=== PATIENT | male | born 1945 | race Caucasian/White ===

== ENCOUNTER 2017-02-20 08:16 | Outpatient (CLI) ==
[2016-04-13 17:39] VITALS: BMI 23.6
--- NOTE | 2017-02-20 09:04 | US ---
EXAM: Ultrasound abdomen limited. HISTORY: Epigastric pain. COMPARISON: CT 08/03/2015. TECHNIQUE: Abdominal, real time with image documentation: limited (eg, single organ, quadrant, fol low-up) FINDINGS: The liver demonstrates homogeneous echotexture without intrahepatic biliary dilatation. Portal venous flow is normal in direction. The gallbladder is without shadowing stones, wall thicke oral or pericholecystic fluid. Common duct measures approximately 0.4 cm. Visualized portions of t he pancreas are unremarkable. IMPRESSION: No sonographic abnormality of the liver, gallbladder or biliary system.
== END 2017-02-20 08:17 | disposition home or self-care (01) ==
LOC: RAD 08:16
PROVIDERS: ATTEND Family Medicine
DX: R10.13 Epigastric pain (principal)

== ENCOUNTER 2017-04-07 07:07 | Outpatient (CLI) ==
[2016-04-13 17:39] VITALS: BMI 23.6
--- NOTE | 2017-04-07 09:03 | US ---
Exam: Limited ultrasonographic evaluation of the abdomen with mcdonald-scale and color Doppler imaging. Comparison: 02/20/2017. Reason for exam: Splenomegaly. FINDINGS: The spleen measures approximately 11.48 x 4.61 x 5.05 cm without parenchymal mass lesion or abnormal vascularity. The left kidney measures approximately 11.53 x 5.16 x 4.26 cm. In the midportion of the left kidney . There is a 3.22 x 2.75 x 2.86 anechoic cyst without interval vascularity. Impression: 1. Left renal cyst. 2. No parenchymal splenic lesion is seen on ultrasound evaluation
== END 2017-04-07 07:08 | disposition home or self-care (01) ==
LOC: RAD 07:07
PROVIDERS: ATTEND Internal Medicine Hematology & Oncology
DX: D47.3 Essential (hemorrhagic) thrombocythemia (principal)

== ENCOUNTER 2017-06-02 16:01 | Inpatient (IN) ==
[2017-06-02] MEDS ORDERED: TYLENOL PO STA (16:10)
[2017-06-02 16:50] LABS: BASOPHILS # (AUTO) 0.1 K/uL (0-0.2); BASOPHILS % (AUTO) 0.9 % (0.0-3.0); EOSINOPHILS # (AUTO) 0.1 K/ul (0.0-0.7); EOSINOPHILS % (AUTO) 0.6 % (0.0-7.0); HEMOGLOBIN 11.2 g/dl (14.0-18.0); IMMATURE GRANULOCYTE % (AUTO) 1.6 % (0.0-5.0); LYMPHOCYTES % (AUTO) 7.6 (10.0-50.0); MEAN CORPUSCULAR HEMOGLOBIN 32.7 pg (27.0-31.0); MEAN CORPUSCULAR HGB CONC 33.9 (31.8-35.4); MEAN CORPUSCULAR VOLUME 96.5 fl (80.0-94.0); MONOCYTES # (AUTO) 0.2 K/uL (0.4-2.0); MONOCYTES % (AUTO) 1.7 (0-10); NEUTROPHILS # (AUTO) 11.3 K/ul (2.0-6.9); NEUTROPHILS % (AUTO) 87.6; RED BLOOD COUNT 3.42 10^6/ul (4.70-6.10); WHITE BLOOD COUNT 12.84 K/ul (4.2-10.2)
[2017-06-02 16:53] LABS: PLATELET COUNT 1293 10^3/uL (140-440)
[2017-06-02 17:11] LABS: FLU INTERNAL QC INTERNAL QC VALID; RAPID FLU A NEGATIVE (NEGATIVE); RAPID FLU B NEGATIVE (NEGATIVE)
[2017-06-02 17:11] LABS: ALBUMIN 3.4 g/dL (3.4-5.0); ALBUMIN/GLOBULIN RATIO 0.89; BILIRUBIN,TOTAL 0.74 mg/dL (0.00-1.20); BUN/CREATININE RATIO 16.47; CALCIUM 9.3 mg/dL (8.2-10.2); CREATININE 0.85 mg/dL (0.60-1.10); TOTAL PROTEIN 7.2 g/dL (5.8-8.1)
--- NOTE | 2017-06-02 17:13 | CT ---
EXAM: CT of the chest without contrast. HISTORY: Fever. Left-sided chest pain. PROCEDURE: Contiguous axial CT images of the chest without contrast with coronal and sagittal refor mats. FINDINGS: The heart is within normal limits in size. The thoracic aorta is within normal limits in diameter. The mediastinum is normal in appearance. There is a small layering left pleural effusion w ith adjacent consolidation. There are infiltrates and consolidation in the left upper lobe consisten t with pneumonia. There are calcified granulomas in the right lung. There is minimal right basilar d ependent atelectasis. There are degenerative changes in the spine. The adrenal glands and visualize d portion of the liver are normal in appearance. Impression: Left upper lobe infiltrates and consolidation consistent with pneumonia. Small left pleural effusion with adjacent atelectasis and/or pneumonia. Minimal right basilar dependent atelectasis.
[2017-06-02] MEDS ORDERED: SODIUM CHLORIDE 1,000 ML IV STA (17:21)
[2017-06-02] MEDS ORDERED: ROCEPHIN 1 GM in SODIUM CHLORIDE 50 ML IV STA (17:21)
[2017-06-02 17:22] LABS: ERYTHROCYTE SEDIMENTATION RATE 38 mm/hr (0-15); ESR INTERNAL QC INTERNAL QC VALID
--- NOTE | 2017-06-02 17:24 | ED.PDOC ---
General ED Provider: Dr. IAN LANDRUM-ER Chief Complaint: Fever Stated Complaint: hes had fever and left chest pain Time Seen by Physician: 16:05 Mode of Arrival: Walk-In Information Source: Patient, Family Exam Limitations: No limitations Primary Care Provider: IAN LANDRUM Nursing and Triage Documentation Reviewed and Agree: Yes Miscellaneous Complaint Exam - Febrile Illness/Adult Complaint/Exam Onset/Duration: 24hrs Symptoms Are: Still present Timing: Intermittent Episodes Lasting: Hours Highest Temperature Recorded: 103 Initial Severity: Mild Current Severity: Moderate Aggravating: Reports: Unknown Alleviating: Reports: None Associated Signs and Symptoms: Reports: Headache, Chills, Myalgia. Denies: Fluid intake, Short of air, Cough, Sore throat, Nausea, Vomiting, Diaphoresis, Dysuria, Arthralgia, Stiff neck, Rash, Altered mental status Related History: Reports: Similar episode. Denies: Recent tick bite, Recent tick exposure Pseudomonas Risk Factors: Reports: None Serious Bacterial Infection Risk Factors: Reports: None Current Antibiotic Use: No Specific Findings: Absent: Meningeal signs, Diaphoresis, Joint swelling, Erythema, Cellulitis, Lymphadenopathy, Petechiae, CVA tenderness Differential Diagnoses: Fever of Unknown Origin, Pyelonephritis Patient Advised to Stop Smoking: No Review of Systems - Review Of Systems Constitutional: Reports: Chills, Fever Eyes: Reports: No symptoms Ears, Nose, Mouth, Throat: Reports: No symptoms Respiratory: Reports: Cough Cardiac: Reports: Chest pain GI: Reports: No symptoms : Reports: No symptoms Musculoskeletal: Reports: No symptoms Skin: Reports: No symptoms Neurological: Reports: No symptoms Endocrine: Reports: No symptoms Hematologic/Lymphatic: Reports: No symptoms All Other Systems: Reviewed and Negative Past Medical History - Past Medical History Previously Healthy: Yes Endocrine: Reports: Unknown Cardiovascular: Reports: Unknown Respiratory: Reports: Unknown Hematological: Reports: Unknown, Other (thrombocytosis) Gastrointestinal: Reports: Unknown Genitourinary: Reports: Unknown Neuro/Psych: Reports: Unknown Musculoskeletal: Reports: Unknown Cancer: Reports: Unknown - Surgical History General Surgical History: Reports: Unknown - Family History Family History: Reports: Unknown - Social History Smoking Status: Former smoker Hx Substance Use: No Alcohol Screening: Occasionally Lives: With family Physical Exam - Physical Exam Appearance: Well-appearing, No pain distress, Well-nourished Pain Distress: Mild Eyes: SANJEEV, EOMI, Conjunctiva clear ENT: Ears normal, Nose normal, Oropharynx normal Neck: Supple Respiratory: Crackles, Rhonchi Cardiovascular: RRR, Pulses normal, No rub, No murmur GI/: Soft, Nontender, No masses, Bowel sounds normal, No Organomegaly Musculoskeletal: Normal strength Skin: Warm Neurological: Sensation intact Psychiatric: Affect appropriate, Mood appropriate Interpretation - Radiology Interpretation Radiology Interpretation By: Radiologist Radiology Results: Positive Exam Interpreted: CT Scan Critical Care Note - Critical Care Note Total Time (mins): 0 Course - Course Hematology/Chemistry: 06/02/17 16:09 06/02/17 14:53 Orders, Labs, Meds: Lab Review 06/02/17 06/02/17 06/02/17 14:53 16:09 16:15 WBC 12.84 H RBC 3.42 L Hgb 11.2 L Hct 33.0 L MCV 96.5 H MCH 32.7 H MCHC 33.9 RDW Coeff of Jeff 18.7 H Plt Count 1293 H* Immature Gran % (Auto) 1.6 Neut % (Auto) 87.6 Lymph % (Auto) 7.6 L [place] % (Auto) 1.7 Eos % (Auto) 0.6 Baso % (Auto) 0.9 Immature Gran # (Auto) 0.2 Neut # 11.3 H Lymph # 1.0 Burnet # 0.2 L Eos # 0.1 Baso # 0.1 ESR 38 H Sodium 138 Potassium 4.0 Chloride 101 Carbon Dioxide 25 Anion Gap 16.0 BUN 14 Creatinine 0.85 Estimated GFR (MDRD) 89.00 BUN/Creatinine Ratio 16.47 Glucose 126 H Calcium 9.3 Total Bilirubin 0.74 AST 25 ALT 21 Alkaline Phosphatase 54 L Total Protein 7.2 Albumin 3.4 Globulin 3.8 Albumin/Globulin Ratio 0.89 Influenza A (Rapid) Negative Influenza B (Rapid) Negative Orders Category Date Time Status ED IV/MEDIPORT/POWERPORT .ONCE EMERGENCY 06/02/17 17:21 Active BLOOD CULTURE Stat LAB 06/02/17 14:53 Received CBC W/ AUTO DIFF Stat LAB 06/02/17 16:09 Completed COMPREHENSIVE METABOLIC PANEL Stat LAB 06/02/17 14:53 Completed EHRLICHIA DNA, PCR Stat LAB 06/02/17 14:53 Received ESR Stat LAB 06/02/17 16:09 Completed MOLECULAR GROUP A STREP Stat LAB 06/02/17 16:15 Results RAPID FLU A/B Stat LAB 06/02/17 16:15 Completed LAUREN MTN SPOTTED FEVER,IgG Stat LAB 06/02/17 14:53 Received LAUREN MTN SPOTTED FEVER,IgM Stat LAB 06/02/17 14:53 Received STREP SCREEN Stat LAB 06/02/17 16:15 Results URINALYSIS C & S IF INDICATED Stat LAB 06/02/17 16:09 Uncollected 0.9 % Sodium Chloride [Saline Flush] MEDS 06/02/17 17:21 Ordered 1 syr IVF PRN PRN Acetaminophen [Tylenol] MEDS 06/02/17 16:10 Discontinued 650 mg PO ONCE STA Ceftriaxone Sodium [Rocephin] 1 gm MEDS 06/02/17 17:21 Active 0.9 % Sodium Chloride [Sodium Chloride] 50 ml IV ONCE Sodium Chloride 0.9% [Sodium Chloride] 1,000 ml MEDS 06/02/17 17:21 Active IV 100 mls/hr CT ABDOMEN/PELVIS WO CONTRAST Stat RADS 06/02/17 16:[address] CHEST W/O CONTRAST Stat RADS 06/02/17 16:10 Completed Medications Generic Name Dose Route Start Last Admin Trade Name Freq PRN Reason Stop Dose Admin Ceftriaxone Sodium 1 gm/ 50 mls @ 75 mls/hr 06/02/17 17:21 Sodium Chloride IV 06/02/17 18:00 ONCE STA Sodium Chloride 1,000 mls @ 100 mls/hr 06/02/17 17:21 Sodium Chloride IV 06/03/17 03:20 .Q10H STA Sodium Chloride 1 syr 06/02/17 17:21 Saline Flush IVF PRN PRN To flush IV Discontinued Medications Generic Name Dose Route Start Last Admin Trade Name Freq PRN Reason Stop Dose Admin Acetaminophen 650 mg 06/02/17 16:10 06/02/17 16:35 Tylenol PO 06/02/17 16:11 650 mg ONCE STA Administration Vital Signs: Temp Pulse Resp BP Pulse Ox 06/02/17 16:02 103.6 F H 99 H 20 134/71 95 Departure - Departure Time of Disposition: 17:25 Disposition: ADMITTED INPATIENT Discharge Problem: Pneumonia Instructions: Community Acquired Pneumonia (ED) Condition: Good Pt referred to PMD for follow-up: Yes Allergies/Adverse Reactions: Allergies No Known Allergies Allergy (Verified 06/02/17 16:11) Home Medications: Ambulatory Orders Aspirin [Aspirin EC] 81 mg PO DAILYWM 04/13/16 Garlic 1 each PO DAILY 04/13/16 [place]-3 Fatty Acids [Fish Oil] 500 mg PO BID 04/13/16 Red Yeast Rice 600 mg PO DAILY 04/13/16 [place] Jelly 500 mg PO DAILY 07/08/16 Hydroxyurea [Droxia] 200 mg PO DAILY 06/02/17 Disposition Discussed With: Patient, Family
--- NOTE | 2017-06-02 17:27 | CT ---
EXAM: CT abdomen pelvis without contrast HISTORY: Fever COMPARISON: 08/03/2015 TECHNIQUE: CT abdomen pelvis performed without intravenous contrast. Coronal and sagittal reformat franko images obtained. FINDINGS: Please see separate report CT chest noting small left pleural effusion and left-sided inf iltrate. No free air. No acute abnormalities of the bones. Degenerative change in the spine. Rod ateral pars defects L5 with 1 cm anterolisthesis of L5 on S1. Evaluation organ parenchyma limited w ithout contrast. Liver appears normal. Gallbladder unremarkable. Pancreas unremarkable. Spleen m ildly enlarged. Adrenals unremarkable. There is a left renal cyst measuring 3 cm. There are sever al bilateral nonobstructing renal calculi measuring up to 3 mm. No hydronephrosis. No calculi visu alized in normal course of the ureters. Bladder only mildly distended and poorly evaluated, grossly unremarkable. Prostate normal in size. Small fat-containing right inguinal hernia. Aorta normal in caliber. Mild atherosclerosis. No lymphadenopathy or ascites. Small fat-containing umbilical h ernia. Stomach appears normal. No dilated loops small bowel. Mild fecal retention in the colon. Appendix not visualized. No inflammatory stranding identified in the abdomen pelvis. IMPRESSION: 1. No acute inflammatory process identified in the abdomen pelvis. 2. Bilateral nephrolithiasis. No hydronephrosis. 3. Mild splenomegaly. 4. Mild fecal retention. 5. Please see separate report CT chest noting small pleural effusion and left-sided pneumonia. 6. Bilateral pars defects L5 with 1 cm anterolisthesis of L5 on S1.
[2017-06-02] MEDS ORDERED: MOTRIN SUSP PO PRN (17:30)
[2017-06-02] MEDS ORDERED: ROCEPHIN ONE (17:36)
[2017-06-02 18:13] VITALS: BMI 22.1
[2017-06-02] MEDS: ZITHROMAX PO SCH (18:18)
[2017-06-02] MEDS: SODIUM CHLORIDE 1,000 ML IV SCH (18:19)
[2017-06-02] MEDS ORDERED: DUONEB NEB ONE (18:58)
[2017-06-02] MEDS: XOPENEX 0.63 MG NEB SCH ×2 (19:00→23:25)
[2017-06-02] MEDS ORDERED: OMEGA-3 FISH OIL ONE (20:44)
[2017-06-02] MEDS ORDERED: OMEGA PO SCH ×21 (21:00)
[2017-06-02] MEDS ORDERED: FATTY ACIDS PO SCH ×21 (21:00)
[2017-06-02 22:00] LABS: ADD URINE MICROSCOPIC YES; BILIRUBIN,URINE Negative (NEGATIVE); KETONES,URINE Negative (NEGATIVE); LEUKOCYTE ESTERASE ,URINE Negative (NEGATIVE); NITRITE,URINE Negative (NEGATIVE); PH,URINE 5.5 (5-9); PROTEIN,URINE 1+ (NEGATIVE); URINE, BLOOD Negative (NEGATIVE)
[2017-06-02 22:19] LABS: GRANULAR CASTS,URINE 0-2 (NOT PRESENT)
[2017-06-03] MEDS: XOPENEX 0.63 MG NEB SCH ×4 (05:04→22:33)
[2017-06-03] MEDS: TYLENOL PO PRN ×2 (05:09→13:23)
[2017-06-03 05:28] LABS: BASOPHILS # (AUTO) 0.1 K/uL (0-0.2); BASOPHILS % (AUTO) 0.8 % (0.0-3.0); EOSINOPHILS # (AUTO) 0.1 K/ul (0.0-0.7); EOSINOPHILS % (AUTO) 0.4 % (0.0-7.0); HEMATOCRIT 27.4 % (42.0-52.0); HEMOGLOBIN 9.4 g/dl (14.0-18.0); IMMATURE GRANULOCYTE % (AUTO) 1.8 % (0.0-5.0); LYMPHOCYTES # (AUTO) 0.9 K/uL (0.60-3.4); LYMPHOCYTES % (AUTO) 8.2 (10.0-50.0); MEAN CORPUSCULAR HEMOGLOBIN 33.1 pg (27.0-31.0); MEAN CORPUSCULAR HGB CONC 34.3 (31.8-35.4); MEAN CORPUSCULAR VOLUME 96.5 fl (80.0-94.0); MONOCYTES # (AUTO) 0.2 K/uL (0.4-2.0); MONOCYTES % (AUTO) 1.7 (0-10); NEUTROPHILS # (AUTO) 9.8 K/ul (2.0-6.9); NEUTROPHILS % (AUTO) 87.1; RED BLOOD COUNT 2.84 10^6/ul (4.70-6.10); WHITE BLOOD COUNT 11.29 K/ul (4.2-10.2)
[2017-06-03 05:29] LABS: PLATELET COUNT 1044 10^3/uL (140-440)
[2017-06-03 05:48] LABS: ALBUMIN 2.7 g/dL (3.4-5.0); ALBUMIN/GLOBULIN RATIO 0.82; ANION GAP 9.4; BILIRUBIN,TOTAL 0.56 mg/dL (0.00-1.20); BUN/CREATININE RATIO 17.8; CALCIUM 8.4 mg/dL (8.2-10.2); CREATININE 0.73 mg/dL (0.60-1.10); POTASSIUM 4.4 mmol/L (3.5-5.1)
[2017-06-03] MEDS: SODIUM CHLORIDE 1,000 ML IV SCH ×3 (05:56→23:02)
[2017-06-03] MEDS: OMEGA-3 FISH OIL PO SCH ×2 (08:22→20:55)
[2017-06-03] MEDS: ASPIRIN EC PO SCH (08:22)
[2017-06-03] MEDS: ZITHROMAX PO SCH (08:22)
[2017-06-03] MEDS: ROCEPHIN 1 GM in SODIUM CHLORIDE 50 ML IV SCH (08:23)
[2017-06-03] MEDS: LOVENOX SUBCUT SCH (08:23)
[2017-06-03] MEDS: HYDROXYUREA 200 MG PO SCH (08:23)
[2017-06-04] MEDS: TYLENOL PO PRN ×4 (00:44→20:21)
[2017-06-04 04:47] LABS: BASOPHILS # (AUTO) 0.1 K/uL (0-0.2); BASOPHILS % (AUTO) 0.8 % (0.0-3.0); EOSINOPHILS # (AUTO) 0.1 K/ul (0.0-0.7); EOSINOPHILS % (AUTO) 0.8 % (0.0-7.0); HEMATOCRIT 26.2 % (42.0-52.0); HEMOGLOBIN 8.9 g/dl (14.0-18.0); IMMATURE GRANULOCYTE % (AUTO) 1.8 % (0.0-5.0); LYMPHOCYTES % (AUTO) 10.1 (10.0-50.0); MONOCYTES # (AUTO) 0.2 K/uL (0.4-2.0); MONOCYTES % (AUTO) 1.5 (0-10); NEUTROPHILS # (AUTO) 8.4 K/ul (2.0-6.9); WHITE BLOOD COUNT 9.84 K/ul (4.2-10.2)
[2017-06-04 04:50] LABS: PLATELET COUNT 1030 10^3/uL (140-440)
[2017-06-04 05:06] LABS: ALBUMIN 2.6 g/dL (3.4-5.0); ALBUMIN/GLOBULIN RATIO 0.79; ANION GAP 9.5; BILIRUBIN,TOTAL 0.42 mg/dL (0.00-1.20); BUN/CREATININE RATIO 14.92; CALCIUM 8.5 mg/dL (8.2-10.2); CREATININE 0.67 mg/dL (0.60-1.10); POTASSIUM 4.5 mmol/L (3.5-5.1); TOTAL PROTEIN 5.9 g/dL (5.8-8.1)
[2017-06-04] MEDS: XOPENEX 0.63 MG NEB SCH ×4 (05:35→22:43)
[2017-06-04] MEDS: ASPIRIN EC PO SCH (08:49)
[2017-06-04] MEDS: OMEGA-3 FISH OIL PO SCH ×2 (08:49→20:16)
[2017-06-04] MEDS: ZITHROMAX PO SCH (08:49)
[2017-06-04] MEDS: LOVENOX SUBCUT SCH (08:49)
[2017-06-04] MEDS: ROCEPHIN 1 GM in SODIUM CHLORIDE 50 ML IV SCH (08:49)
[2017-06-04] MEDS: HYDROXYUREA 200 MG PO SCH (08:54)
[2017-06-04] MEDS: SODIUM CHLORIDE 1,000 ML IV SCH (13:20)
--- NOTE | 2017-06-04 14:13 | DI ---
EXAM: Two views of the chest. History: Follow-up pneumonia Comparison: Chest CT 06/02/2017 Findings: Heart size is normal. Persistent but improving left upper lobe consolidation. Left lowe r lobe consolidation is increasing and there is a small left pleural effusion. Right lung is grossl y clear. No pneumothorax. The visualized osseous structures unchanged. Impression: Persistent but improving left upper lobe consolidation. Left lower lobe consolidation is increasing. There is a small left pleural effusion. Continued follow-up recommended.
[2017-06-04] MEDS: HYDREA PO SCH (14:17)
[2017-06-04] MEDS ORDERED: HYDROXYUREA 500 MG PO SCH (14:30)
[2017-06-05] MEDS: TYLENOL PO PRN ×2 (04:15→11:57)
[2017-06-05 05:01] LABS: BASOPHILS # (AUTO) 0.1 K/uL (0-0.2); EOSINOPHILS # (AUTO) 0.1 K/ul (0.0-0.7); EOSINOPHILS % (AUTO) 1.1 % (0.0-7.0); HEMATOCRIT 28.8 % (42.0-52.0); HEMOGLOBIN 9.8 g/dl (14.0-18.0); IMMATURE GRANULOCYTE % (AUTO) 1.2 % (0.0-5.0); LYMPHOCYTES # (AUTO) 0.9 K/uL (0.60-3.4); LYMPHOCYTES % (AUTO) 10.6 (10.0-50.0); MEAN CORPUSCULAR HEMOGLOBIN 33.1 pg (27.0-31.0); MEAN CORPUSCULAR VOLUME 97.3 fl (80.0-94.0); MONOCYTES # (AUTO) 0.1 K/uL (0.4-2.0); MONOCYTES % (AUTO) 1.4 (0-10); NEUTROPHILS # (AUTO) 7.1 K/ul (2.0-6.9); NEUTROPHILS % (AUTO) 84.7; RED BLOOD COUNT 2.96 10^6/ul (4.70-6.10); WHITE BLOOD COUNT 8.38 K/ul (4.2-10.2)
[2017-06-05 05:05] LABS: PLATELET COUNT 1297 10^3/uL (140-440)
[2017-06-05] MEDS: XOPENEX 0.63 MG NEB SCH ×2 (05:10→11:10)
[2017-06-05 05:19] LABS: ALBUMIN 2.7 g/dL (3.4-5.0); ALBUMIN/GLOBULIN RATIO 0.77; ANION GAP 15.2; BILIRUBIN,TOTAL 0.44 mg/dL (0.00-1.20); BUN/CREATININE RATIO 13.43; CALCIUM 8.9 mg/dL (8.2-10.2); CREATININE 0.67 mg/dL (0.60-1.10); POTASSIUM 4.2 mmol/L (3.5-5.1); TOTAL PROTEIN 6.2 g/dL (5.8-8.1)
[2017-06-05] MEDS: SODIUM CHLORIDE 1,000 ML IV SCH ×2 (07:06→19:18)
[2017-06-05] MEDS: LOVENOX SUBCUT SCH (09:22)
[2017-06-05] MEDS: ROCEPHIN 1 GM in SODIUM CHLORIDE 50 ML IV SCH (09:23)
[2017-06-05] MEDS: OMEGA-3 FISH OIL PO SCH ×2 (09:23→20:29)
[2017-06-05] MEDS: ASPIRIN EC PO SCH (09:23)
[2017-06-05] MEDS: HYDREA PO SCH (09:23)
[2017-06-05] MEDS: ZITHROMAX PO SCH (09:23)
[2017-06-05 18:16] VITALS: BP 123/74; TEMP 97.7
[2017-06-05] MEDS ORDERED: NORCO 5-325 PO STA (19:59)
[2017-06-05] MEDS ORDERED: NORCO 5-325 ONE (20:01)
--- NOTE | 2017-06-05 20:32 | CT ---
EXAM: CT head without contrast HISTORY: Headache COMPARISON: None. TECHNIQUE: Helical axial CT of the head was performed without contrast. Coronal and sagittal reconst ructions were performed. FINDINGS: There is no acute intracranial abnormality. There is no hemorrhage, mass, midline shift, abnormal e xtra-axial fluid collection, hydrocephalus or evolving ischemia. The mcdonald-white matter junction is w ell maintained. There is some mild atrophy and some modest chronic small vessel ischemia in the whit e matter of both cerebral hemispheres most notably in the left parietal area. Brain parenchyma, vent ricles and sulci are otherwise normal. There are no acute calvarial lesions. Visualized orbits and globes are unremarkable. The mastoid a ir cells demonstrate no significant soft tissue opacification. The visualized paranasal sinuses show no air-fluid levels. There appears to have been prior sinus surgery which is partially imaged. IMPRESSION: 1. No acute intracranial abnormality. Specifically there is no evolving ischemia or hemorrhage. 2. Mild atrophy and some chronic small vessel ischemia in the white matter of both cerebral hemisph eres.
--- NOTE | 2017-06-09 14:17 | HP ---
CHIEF COMPLAINT: He is sick DISCUSSION: This is a 72 year old gentleman usually in good health who presented to the emergency department with three day history of cough and left sided chest wall pain as well as fever up to 103. He has had some cough but mild, the temp up to 104 with chills. In the emergency department he was known to have a temperature of 103.6. Subsequent evaluation revealed left upper lobe consolidation. The patient was subsequently admitted to my services for further evaluation. MEDICATIONS: Coated aspirin Ary-3 Hydroxyurea ALLERGIES: None PAST MEDICAL HISTORY: History of essential thrombocytosis followed by [facility] SOCIAL HISTORY: Previous smoker. Use of alcohol socially. Resides at home with his . No illicit drug use noted. SURGICAL HISTORY: None FAMILY HISTORY: Reviewed and thought not to be pertinent to discussion REVIEW OF SYSTEMS: Mild headache. Denies any visual changes, tinnitus, hemoptysis, blood in the stool, urinary symptoms or seizures. Left chest wall pain with coughing. No abdominal pain. No shortness of breath. PHYSICAL EXAMINATION: V/S: Temperature 103.2, pulse 99, respiratory rate 20 and blood pressure 134/71. HEENT: Pupils are round. NECK: Supple. CHEST: Clear. CARDIOVASCULAR: Regular rate and rhythm. ABDOMEN: Soft, nontender. EXTREMITIES: Distal extremities without cyanosis or edema. ASSESSMENT: 1. Community acquired pneumonia 2. Essentially thrombocytosis PLAN: 1. Admission 2. IV fluids 3. Antibiotic coverage for community acquired pneumonia 4. Follow CBC's 5. DVT prophylaxis 6. Has an appointment at [facility] this week for recheck of his platelets. 7. Please see orders. MTDD
--- NOTE | 2017-06-09 14:22 | PN ---
DATE OF VISIT: 06/03/17 SUBJECTIVE: The patient reports still having fever. His coughing is a little more productive with NEB treatments. He is coughing up a yellowish sputum without hemoptysis. OBJECTIVE: V/S:Temperature 99.9, pulse 84, respiratory 18, blood pressure 120/80. HEENT: Pupils are round. NECK: Supple CHEST: Scattered bronchi CARDIOVASCULAR: Regular rate and rhythm ABDOMEN: Soft, nontender EXTREMITIES: Distal extremities without cyanosis or edema. LABS: Pending ASSESSMENT: 1. Community acquired pneumonia 2. Essential thrombocytosis PLAN: 1. Continue antibiotics 2. Monitor temperature 3. Repeat chest X-ray tomorrow MTDD
--- NOTE | 2017-06-09 14:42 | PN ---
DATE OF VISIT: 06/05/17 SUBJECTIVE: Mr. Gillis overall feels better. He denies any fever or chills. His cough is less productive and he doesn't feel short of breath. He is ambulating in the hallway. However he has noted a headache for the past couple of days after he has been given the Hydrea. Unbeknownst to me the dose was increased from 200mg to 500mg I guess in discussed with Suzie and his blind stitch machine operator at [facility]. He is convinced that this is causing the headache. I called [facility] and discussed the case with Dr. Johnston and doesn't feel this is a high enough dose to cause this but he is convinced it is. I discussed this with her and she said that he was OK to discontinue the Hydrea until he can get into see his regular blind stitch machine operator next week at [facility]. We did a CAT scan of the head which was negative for bleed. My concern was also wither or not he might have a venous clot in the brain however and I had discussed with Salty and his about being transferred to [facility] and they declined this and wished to go home. He understands the risks involved. PHYSICAL EXAMINATION: V/S: Temperature 98.3, pulse 76, respiratory rate 18 and blood pressure 127/71 LUNGS: Clear CARDIOVASCULAR: Regular rate and rhythm ABDOMEN: Soft, nontender EXTREMITIES: Distal extremities without cyanosis or edema. ASSESSMENT: 1. Pneumonia- clinically improved 2. Headache-resolved 3. Essentially thrombocytosis PLAN: 1. He is going to go home on Omnicef 2. He is going to followup with his Sales Research Analyst at [facility] next week. I think he plans on seeing them early like maybe Thursday. ADDENDUM: I talked with Mr. Gillis on Thursday morning around 10:00 he was feeling much better and he had actually taken the dog for a walk and he didn't have a headache at this time. I think he plans on holding the Hydrea until he talks to his Sales Research Analyst. He understands the risks that are involved but says that he feels so bad whenever he takes it he isn't going to do it. MTDD
--- NOTE | 2017-07-21 13:18 | DS ---
PRINCIPAL DIAGNOSIS: Community acquired pneumonia Essential thrombocytosis DISCUSSION: This is a 72 year old gentleman who was under the care of [facility] for essential thrombocytosis who presented to the emergency department with a three day history of productive cough, left sided chest wall discomfort and fever of 103 with chills. In the emergency department he was noted to have a temperature of 103.6. Subsequent evaluation revealed left upper lobe consolidation consistent with pneumonia. At that point he was admitted to my services for further treatment and evaluation. CLINICAL COURSE: We placed him on broad spectrum antibiotics he did rapidly defervesce and his cough became more productive. Repeat radiographs revealed improvement and at the time of discharge he remained afebrile and his oximetries were acceptable. At this point we felt it was stable for discharge. At this point he was discharged with antibiotics, please see medical reconciliation. He is going followup at [facility] next week for a recheck of his thrombocytosis and followup with me shortly there after for repeat radiographs and document clearly of the pneumonia. WESLY
== END 2017-06-05 21:35 | disposition home or self-care (01) | DRG 195 ==
LOC: ED 16:01 → MEDSURG B 17:27 → UNDOADMIN 17:27 → MEDSURG A 17:27
PROVIDERS: ADMIT Family Medicine; ATTEND Family Medicine
DX: J18.9 Pneumonia, unspecified organism (principal); D47.3 Essential (hemorrhagic) thrombocythemia; R51 Headache; R07.89 Other chest pain; R50.9 Fever, unspecified; Z87.891 Personal history of nicotine dependence; Z79.82 Long term (current) use of aspirin; Z79.899 Other long term (current) drug therapy
CPT/HCPCS: 36415; 80053; 81001; 85025; 85651; 86757; 87040; 87651; 87798; 87804; 87880; 94640; 99284

== ENCOUNTER 2017-06-10 07:47 | Outpatient (CLI) ==
--- NOTE | 2017-06-10 09:12 | DI ---
EXAM: Chest two view, frontal and lateral views. HISTORY: Pneumonia follow-up. COMPARISON: 06/04/2017. FINDINGS: The heart size is normal. There is no pulmonary vascular congestion. Lateral left upper lobe perihilar consolidation is unchanged. Left lower lobe consolidation has nearly completely res olved. No new areas of consolidation identified. Otherwise, the lungs are clear. No pleural effus ion or pneumothorax is seen. No acute osseous abnormality identified. IMPRESSION: 1. Near-complete resolution of left lower lobe pneumonia. 2. Stable left upper lobe perihilar pneumonia. 3. Continued follow-up is recommended.
== END 2017-06-10 07:48 | disposition home or self-care (01) ==
LOC: RAD 07:47
PROVIDERS: ATTEND Family Medicine
DX: J18.9 Pneumonia, unspecified organism (principal)

== ENCOUNTER 2017-06-30 16:07 | Outpatient (CLI) ==
--- NOTE | 2017-06-30 16:46 | DI ---
EXAM: Chest two views HISTORY: Pneumonia FINDINGS: Compared with 06/10/2017. Normal cardiac and mediastinal contours. Normal pulmonary vas culature. Vague residual opacity in the lateral left midlung. No new opacities. Atherosclerotic c alcification of the aorta. No acute abnormality of the bony thorax. IMPRESSION: Previously noted right-sided infiltrate and consolidation shows minor residual opacity which could be scarring. No acute findings otherwise.
== END 2017-06-30 16:08 | disposition home or self-care (01) ==
LOC: RAD 16:07
PROVIDERS: ATTEND Family Medicine
DX: J18.9 Pneumonia, unspecified organism (principal)

== ENCOUNTER 2017-10-26 09:19 | Outpatient (CLI) ==
--- NOTE | 2017-10-26 09:48 | DI ---
EXAM: Two views of the chest. History: Fever. Comparison: Chest radiograph 06/30/2017 Findings: Heart size is within normal limits. No appreciable pleural fluid and no pneumothorax. Le ft lower lobe infiltrate and small left pleural effusion. No acute osseous abnormalities. Impression: Left lower lobe pneumonia and small left pleural effusion
[2017-10-26 10:19] LABS: HEMATOCRIT 31.4 % (42.0-52.0); HEMOGLOBIN 10.9 g/dl (14.0-18.0); MEAN CORPUSCULAR HEMOGLOBIN 34.7 pg (27.0-31.0); MEAN CORPUSCULAR HGB CONC 34.7 (31.8-35.4); PLATELET COUNT 255 10^3/uL (140-440); RED BLOOD COUNT 3.14 10^6/ul (4.70-6.10)
[2017-10-26 10:28] LABS: BILIRUBIN,URINE Negative (NEGATIVE); KETONES,URINE Negative (NEGATIVE); LEUKOCYTE ESTERASE ,URINE Negative (NEGATIVE); NITRITE,URINE Negative (NEGATIVE); PROTEIN,URINE 2+ (NEGATIVE); URINE, BLOOD Trace-intact (NEGATIVE)
[2017-10-26 10:30] LABS: ADD URINE MICROSCOPIC YES
[2017-10-26 10:37] LABS: ALBUMIN 3.6 g/dL (3.4-5.0); ALBUMIN/GLOBULIN RATIO 1.06; ANION GAP 12.1; BILIRUBIN,TOTAL 1.46 mg/dL (0.00-1.20); BUN/CREATININE RATIO 21.83; CALCIUM 9.2 mg/dL (8.2-10.2); CREATININE 0.87 mg/dL (0.60-1.10); POTASSIUM 4.1 mmol/L (3.5-5.1)
[2017-10-26 10:45] LABS: BACTERIA,URINE 1+ (NOT PRESENT)
[2017-10-26 10:46] LABS: ANISOCYTOSIS 2+ (NOT PRESENT); POIKILOCYTOSIS 1+ (NOT PRESENT)
== END 2017-10-26 09:20 | disposition home or self-care (01) ==
LOC: RAD 09:19
PROVIDERS: ATTEND Family Medicine
DX: R50.9 Fever, unspecified (principal)
CPT/HCPCS: 36415; 80053; 81001; 85007; 85025; 87040; 87086

== ENCOUNTER 2017-10-30 13:43 | Outpatient (CLI) ==
--- NOTE | 2017-10-30 14:17 | DI ---
EXAM: Chest two view, frontal and lateral views. HISTORY: Pneumonia. COMPARISON: 10/26/2017. FINDINGS: The heart size is normal. There is no pulmonary vascular congestion. There is improved a eration in the left lower lobe with persistent interstitial opacities noted. Otherwise, the lungs ar e clear. No pleural effusion or pneumothorax is seen. No acute osseous abnormality identified. IMPRESSION: Persistent but improved left basilar pneumonia.
== END 2017-10-30 13:44 | disposition home or self-care (01) ==
LOC: RAD 13:43
PROVIDERS: ATTEND Family Medicine
DX: J18.1 Lobar pneumonia, unspecified organism (principal)

== ENCOUNTER 2017-11-16 14:41 | Outpatient (CLI) ==
--- NOTE | 2017-11-16 15:22 | DI ---
EXAM: Two views of the left hip. History: Left hip pain. Findings: No acute fracture or dislocation. Mild to moderate narrowing of the left hip joint with s mall osteophytes. Mild enthesiopathy of the iliac wing. Benign soft tissue calcifications seen with in the medial left thigh. Impression: 1. No acute osseous abnormality. 2. Mild to moderate osteoarthritis of the left hip joint.
--- NOTE | 2017-11-16 15:23 | DI ---
EXAM: Two views of the chest. History: Bronchitis, follow-up pneumonia Comparison: Chest radiograph 10/30/2017 Findings: Heart size is normal. No focal consolidation. No appreciable pleural fluid and no pneumo thorax. No acute osseous abnormalities. Resolved left lower lobe infiltrate. Impression: No acute cardiopulmonary process
--- NOTE | 2017-11-16 17:06 | CT ---
EXAM: CT Abdomen without contrast. CT Pelvis without contrast. HISTORY: Microscopic hematuria. Back pain. COMPARISON: 06/02/2017. TECHNIQUE: Multiple axial images of the abdomen and pelvis were obtained without intravenous contras t. Images were reformatted in the coronal plane. FINDINGS: Please note that evaluation of the abdominal and pelvic structures is limited due to lack of intravenous contrast. Subpleural linear and nodular densities in the left lower lobe noted with improved aeration since the prior CT. Bilateral pars defects at L5 with approximately 1.1 cm anterolisthesis of L5 on S1. Dege nerative changes present throughout the spine. The liver, gallbladder, pancreas, spleen, and adrenal glands demonstrate normal contour. Nonobstruct ing bilateral renal calculi are present measuring up to 0.4 cm on the right and 0.3 cm on the left. Left renal cyst measures up to 3.5 cm. No hydronephrosis or perinephric inflammation identified. No ureteral or bladder calculi noted. Bladder is unremarkable. The bowel is normal in course and caliber without evidence for obstruction or inflammatory process.. The appendix is not seen. No free fluid or free air identified. Phleboliths seen in the pelvis. C alcifications in the left and right gluteal region are likely due to prior trauma. Atherosclerotic ca lcifications are present. IMPRESSION: 1. Bilateral nephrolithiasis without obstructive uropathy. 2. Improved aeration in the left lower lobe with persistent linear and nodular densities. Consider follow-up CT in 6 months for reassessment.
== END 2017-11-16 14:42 | disposition home or self-care (01) ==
LOC: RAD 14:41
PROVIDERS: ATTEND Family Medicine
DX: R31.1 Benign essential microscopic hematuria (principal); R10.9 Unspecified abdominal pain; M25.552 Pain in left hip; J40 Bronchitis, not specified as acute or chronic

== ENCOUNTER 2018-04-27 14:41 | Outpatient (CLI) ==
--- NOTE | 2018-04-27 15:21 | DI ---
EXAM: PA and lateral views of the chest HISTORY: Cough. COMPARISON: Chest x-ray 11/16/2017 and multiple priors FINDINGS: The cardiomediastinal silhouette is normal. There is no pneumothorax or pleural effusion. There is no consolidation, nodule or mass. The osseous structures are stable. IMPRESSION: No acute cardiopulmonary process
== END 2018-04-27 14:42 | disposition home or self-care (01) ==
LOC: LAB 14:41
PROVIDERS: ATTEND Family Medicine
DX: R50.9 Fever, unspecified (principal); R05 Cough
CPT/HCPCS: 36415; 80053; 85025

== ENCOUNTER 2018-04-30 08:46 | Emergency (ER) ==
[2018-04-30 08:51] VITALS: BP 128/63; TEMP 97.6; BMI 22.4
--- NOTE | 2018-04-30 09:45 | CT ---
EXAM: CT of the abdomen pelvis without contrast History: Epigastric abdominal pain. Comparison: CT abdomen pelvis 11/16/2017 Technique: Multiplanar CT images through the abdomen pelvis were obtained without the administration of IV contrast Findings: Minimal tree in bud opacities are seen within the right lower lung. No acute osseous abnor malities. No change in the grade 1 to grade 2 anterolisthesis of L5 on S1 due to pars defects. Mild c hronic compression deformity involving superior endplate of L2 with prominent Schmorl's node. No discrete gallstones identified by CT. 3 mm right renal calculus. A few small 2 mm left renal yasir culi. No hydronephrosis. No change in the simple appearing left renal cyst. Spleen is upper limits of normal in size. No focal liver or splenic lesions. Intraventricular septum of the heart is visi ble suggesting anemia. Adrenal glands are unremarkable. No peripancreatic inflammation. No dilated loops of bowel. The appendix is not seen. There are no secondary signs of appendicitis. No free a ir. No ascites. No bladder wall thickening. Prostate is not significantly enlarged. No perirectal inflammation. Scattered colonic stool. Possible small scrotal hydrocele. Impression: 1. No acute intra-abdominal or pelvic process. 2. Nonobstructing bilateral nephrolithiasis. 3. No change in the simple left renal cyst. 4. Probable anemia. 5. Mild inflammatory process within the right lower lung.
--- NOTE | 2018-04-30 10:45 | ED.PDOC ---
General ED Provider: Dr. ILEANA ROGEL Chief Complaint: Abdominal Pain Stated Complaint: abdominal pain Time Seen by Physician: 09:00 Mode of Arrival: Walk-In Information Source: Patient Exam Limitations: No limitations Primary Care Provider: IAN LANDRUM Nursing and Triage Documentation Reviewed and Agree: Yes Reviewed sepsis parameters & appropriate labs ordered?: Yes System Inflammatory Response Syndrome: Not Applicable Sepsis Protocol: For patient's 13 years and over: Temp is 96.8 and below OR 101 and greater Pulse >90 BPM Resp >20/minute Acutely Altered Mental Status Are patient's symptoms suggestive of a new infection, such as: -Pneumonia -Skin, Soft Tissue -Endocarditis -UTI -Bone, Joint Infection -Implantable Device -Acute Abdominal Infection -Wound Infection -Meningitis -Blood Stream Catheter Infection -Unknown System Inflammatory Response Syndrome: Not Applicable GI Complaint Exam - Abdominal Pain Complaint/Exam Onset: Gradual Duration: 1 week during 4 mile walk becomes shortof breath Symptoms Are: Resolved Timing: Intermittent Initial Severity: Mild Current Severity: None Location of Pain: Epigastric Radiates To: Denies: Chest, Back, Flank, LLQ, RLQ, Inguinal Character: Denies: Sharp, Dull, Aching, Throbbing, Burning, Cramping, Tearing, Colicky, Unable to describe Aggravating: Reports: Movement (walking 4 miles ). Denies: Food, Deep breaths Alleviating: Reports: None Associated Signs and Symptoms: Denies: Diaphoresis, Fever, Cough, Chest pain, Dizziness, Back pain, Constipation, Blood in stool, Dysuria, Urinary frequency, Decreased urine output, Decreased appetite, Discharge, Nausea, Vomiting, Diarrhea, Decreased activity Related History: Reports: Similar episode AAA Risk Factors: Reports: None Cardiac Risk Factors: Reports: None Testicular Torsion Risk Factors: Reports: None Surgical Obstruction Risk Factors: Reports: None Related Surgical History: Reports: None Abdominal Findings: Present: None Differential Diagnoses: Appendicitis, Bowel Obstruction, Constipation, Gastroenteritis Quality Indicators for AMI: EKG in 10min. Quality Indicators for Cardiac Chest Pain: EKG in 10min. Quality Indicator For Non-Traumatic Chest Pain/Syncope: EKG Performed Review of Systems - Review Of Systems Constitutional: Reports: No symptoms Eyes: Reports: No symptoms Ears, Nose, Mouth, Throat: Reports: No symptoms Respiratory: Reports: No symptoms Cardiac: Reports: No symptoms GI: Reports: Abdominal pain (epigastric) : Reports: No symptoms Musculoskeletal: Reports: No symptoms Skin: Reports: No symptoms Neurological: Reports: No symptoms Endocrine: Reports: No symptoms Hematologic/Lymphatic: Reports: No symptoms All Other Systems: Reviewed and Negative Past Medical History - Past Medical History Previously Healthy: Yes Endocrine: Reports: Unknown Cardiovascular: Reports: Unknown Respiratory: Reports: Unknown Hematological: Reports: Unknown, Other (thrombocytosis) Gastrointestinal: Reports: Unknown Genitourinary: Reports: Unknown Neuro/Psych: Reports: Unknown Musculoskeletal: Reports: Unknown Cancer: Reports: Unknown - Surgical History General Surgical History: Reports: Unknown - Family History Family History: Reports: Unknown - Social History Smoking Status: Former smoker Hx Substance Use: No Alcohol Screening: Occasionally - Immunizations Tetanus Shot up to Date: Yes Physical Exam - Physical Exam Appearance: Well-appearing, No pain distress, Well-nourished Eyes: SANJEEV, EOMI, Conjunctiva clear ENT: Ears normal, Nose normal, Oropharynx normal Respiratory: Airway patent, Breath sounds clear, Breath sounds equal, Respirations nonlabored Cardiovascular: RRR, Pulses normal, No rub, No murmur GI/: Soft, Nontender, No masses, Bowel sounds normal, No Organomegaly Musculoskeletal: Normal strength, ROM intact, No edema, No calf tenderness Skin: Warm, Dry, Normal color Neurological: Sensation intact, Motor intact, Reflexes intact, Cranial nerves intact, Alert, Oriented Psychiatric: Affect appropriate, Mood appropriate Interpretation - Radiology Interpretation Radiology Interpretation By: Radiologist Radiology Results: No acute changes - Laborer Laboratory Rate: Normal Rhythm: Sinus Ectopy: None - EKG Interpretation Rate: Normal Rhythm: Sinus Ectopy: None Gro[place]: NL ST Segment: Normal Physician Notification - Case Discussed Physician Notified: pmd Time of Notification: 10:47 (transfer to [facility]) Critical Care Note - Critical Care Note Total Time (mins): 0 Course - Course Hematology/Chemistry: 04/30/18 09:27 04/30/18 09:27 Orders, Labs, Meds: Lab Review 04/30/18 04/30/18 04/30/18 09:27 09:27 09:27 WBC 2.51 L RBC 2.59 L Hgb 9.0 L Hct 26.5 L MCV 102.3 H MCH 34.7 H MCHC 34.0 RDW Coeff of Jeff 15.5 H Plt Count 80 L Immature Gran % (Auto) 0.8 Neut % (Auto) 44.2 Lymph % (Auto) 37.5 Brooks % (Auto) 13.1 H Eos % (Auto) 4.0 Baso % (Auto) 0.4 Immature Gran # (Auto) 0.0 Neut # (Auto) 1.1 L Lymph # (Auto) 0.9 Brooks # (Auto) 0.3 L Eos # (Auto) 0.1 Baso # (Auto) 0.0 Sodium 139 Potassium 4.3 Chloride 106 Carbon Dioxide 25 Anion Gap 12.3 BUN 15 Creatinine 0.70 Estimated GFR (MDRD) 111.00 BUN/Creatinine Ratio 21.42 Glucose 94 Calcium 8.4 Total Bilirubin 0.7 AST 16 ALT 17 Alkaline Phosphatase 62 Total Creatine Kinase 18 Troponin I < 0.0100 Total Protein 6.7 Albumin 3.7 Globulin 3.0 Albumin/Globulin Ratio 1.23 Amylase 18 L Lipase 14 Urine Color Urine Clarity Urine pH Ur Specific H[place]reth Urine Protein Urine Glucose (UA) Urine Ketones Urine Blood Urine Nitrite Urine Bilirubin Urine Urobilinogen Ur Leukocyte Esterase H. pylori IgG Antibody 04/30/18 04/30/18 09:27 10:14 WBC RBC Hgb Hct MCV MCH MCHC RDW Coeff of Jeff Plt Count Immature Gran % (Auto) Neut % (Auto) Lymph % (Auto) Brooks % (Auto) Eos % (Auto) Baso % (Auto) Immature Gran # (Auto) Neut # (Auto) Lymph # (Auto) Brooks # (Auto) Eos # (Auto) Baso # (Auto) Sodium Potassium Chloride Carbon Dioxide Anion Gap BUN Creatinine Estimated GFR (MDRD) BUN/Creatinine Ratio Glucose Calcium Total Bilirubin AST ALT Alkaline Phosphatase Total Creatine Kinase Troponin I Total Protein Albumin Globulin Albumin/Globulin Ratio Amylase Lipase Urine Color Yellow Urine Clarity Clear Urine pH 6.0 Ur Specific H[place]reth 1.025 Urine Protein Negative Urine Glucose (UA) Negative Urine Ketones Negative Urine Blood Negative Urine Nitrite Negative Urine Bilirubin Negative Urine Urobilinogen 0.2 Ur Leukocyte Esterase Negative H. pylori IgG Antibody Negative Orders Category Date Time Status EKG-(ED ONLY) Stat CARDIO 04/30/18 09:07 Completed AMYLASE Stat LAB 04/30/18 09:27 Completed CBC W/ AUTO DIFF Stat LAB 04/30/18 09:27 Completed COMPREHENSIVE METABOLIC PANEL Stat LAB 04/30/18 09:27 Completed CREATINE KINASE Stat LAB 04/30/18 09:27 Completed H. PYLORI SCREEN Stat LAB 04/30/18 09:27 Completed LIPASE Stat LAB 04/30/18 09:27 Completed TROPONIN I Stat LAB 04/30/18 09:27 Completed URINALYSIS C & S IF INDICATED Stat LAB 04/30/18 10:[address] ABDOMEN/PELVIS WO CONTRAST Stat RADS 04/30/18 09:04 Completed Vital Signs: Temp Pulse Resp BP Pulse Ox 04/30/18 08:50 97.6 F 71 16 128/63 100 Departure - Departure Time of Disposition: 10:48 (pt left AMA DISCUSSED TRANSFER PT REFUSED RISKS DISCUSSED PRESENT NED) Disposition: AMA Discharge Problem: Abdominal pain, Pancytopenia Instructions: Anemia (ED) Condition: Good Pt referred to PMD for follow-up: Yes IPMP verified?: No Additional Instructions: Please call your Family Physician as soon as possible to schedule a follow-up appointment. Allergies/Adverse Reactions: Allergies No Known Allergies Allergy (Verified 04/30/18 08:52) Home Medications: Ambulatory Orders Aspirin [Aspirin EC] 81 mg PO DAILYWM 04/13/16 Garlic 1 each PO DAILY 04/13/16 [place]-3 Fatty Acids [Fish Oil] 500 mg PO BID 04/13/16 Red Yeast Rice 600 mg PO DAILY 04/13/16 [place] Jelly 500 mg PO DAILY 07/08/16 Hydroxyurea [Hydrea] 500 mg PO DAILY 06/04/17 Disposition Discussed With: Patient, Family
== END 2018-04-30 11:28 | disposition left against medical advice (07) ==
LOC: ED 08:46
DX: D61.818 Other pancytopenia (principal); R10.13 Epigastric pain
CPT/HCPCS: 36415; 80053; 81001; 82150; 82550; 83690; 84484; 85025; 86677; 93005; 93010; 99284